=== PATIENT | male | born 1965 | race Caucasian/White ===

== ENCOUNTER 2018-05-10 12:37 | Observation (INO) | payer SELFPAY ==
[2018-05-10] MEDS ORDERED: Senokot S 8.6-50 MG TAB PO PRN (15:02)
[2018-05-10] MEDS ORDERED: Guaifenesin DM 100-10/5 ML UDCUP PO PRN (15:02)
[2018-05-10] MEDS ORDERED: Acetaminophen 325 MG TAB PO PRN (15:02)
[2018-05-10] MEDS ORDERED: Nitroglycerin 0.4 MG TAB (25 Tab Bottle) PO PRN (15:02)
[2018-05-10] MEDS ORDERED: Lisinopril 10 MG TAB PO SCH ×2 (15:15→21:00)
[2018-05-10] MEDS ORDERED: Multivitamins, Adult 10 ML, Folic Acid 1 MG, Thiamine HCl 100 MG in Dextrose 5 %-0.45 %... IV SCH ×2 (15:15→21:00)
--- NOTE | 2018-05-10 15:50 | HP ---
REASON FOR ADMISSION: Hypertensive urgency, chest pain. HISTORY OF PRESENTING ILLNESS: The patient gives history of waking up at around 4:30 a.m. with shortness of breath. He tried to move around and sleep back, but none of it seemed to help him. He finally drove to his [facility], who called EMS and the patient was taken to [facility]. There are no complaints of cough or expectoration. The patient developed left-sided chest pain with radiation to left upper extremity. This lasted for 30 minutes. It was a sharp pain. Currently, he is chest pain free. On arrival at [facility], the patient had systolic blood pressures into 194/123. As the patient was symptomatic with chest pain and hypertensive urgency, was placed on nitroglycerin drip and was transferred here. He received Lopressor IV 5 mg x3, 1-inch transdermal patch, Norvasc 10 mg, and finally was placed on nitroglycerin drip as his hypertension was not getting controlled. Here in the ER, his systolic blood pressure has come down to 140s. His nitroglycerin drip has been discontinued at present. No complaints of fever, palpitation, or PND. No prior cardiac workup in the past. PAST MEDICAL AND SURGICAL HISTORY: He has had back surgery done with two steel rods and 6 screws per patient. No medical history as such. CURRENT MEDICATIONS: None. ALLERGIES: NO KNOWN DRUG ALLERGIES. PERSONAL HISTORY: Drinks 15 beers a daily. Does not abuse drugs. He smoked for 5 years or so and quit when he was 23 years old. Works as a diesel mechanic. FAMILY HISTORY: Mother is living and has hypertension. Father at the age of 69 years. He has had nearly 4 MIs. The patient is not . Does not have children and he stays alone. CODE STATUS: Full. Power of sports attorney is his mom. REVIEW OF SYSTEMS: CONSTITUTIONAL: Negative for weight loss or gain, ability to conduct usual activities. SKIN: Negative for rash, itching. EYES: Negative for double vision, pain. ENT/MOUTH: Negative for nose bleeding, neck stiffness, pain, tenderness. CARDIOVASCULAR: Negative for palpitations, dyspnea on exertion, orthopnea. RESPIRATORY: Negative for shortness of breath, wheezing, cough, hemoptysis, fever or night sweats. GASTROINTESTINAL: Negative for poor appetite, abdominal pain, heartburn, nausea , vomiting, constipation, or diarrhea. GENITOURINARY: Negative for urgency, frequency, dysuria, nocturia. MUSCULOSKELETAL: Negative for pain, swelling. NEUROLOGIC/PSYCHIATRIC: Negative for anxiety, depression. ALLERGY/IMMUNOLOGIC: Negative for skin rash, bleeding tendency. PHYSICAL EXAMINATION: GENERAL: The patient is a 53-year-old male, who is currently not in any acute distress. VITAL SIGNS: Blood pressure 154/86, pulse 84 per minute, respiratory rate 16 per minute, temperature 97.1 degrees Fahrenheit, saturating 97% on room air. NECK: Supple. No elevated JVD. HEENT: Eyes; extraocular muscles intact. Pupils reacting to light. Oral cavity, mucous membranes are dry. No exudates or congestion. CARDIOVASCULAR SYSTEM: S1 and S2 heard. Regular rhythm. RESPIRATORY SYSTEM: Air entry 1+ bilateral. Scattered rhonchi plus bilateral. ABDOMEN: Soft. Bowel sounds heard. No tenderness, rigidity, or guarding. EXTREMITIES: No peripheral edema or calf tenderness. VASCULAR SYSTEM: Peripheral pulses 1+ bilateral. No ischemic ulcerations or gangrene. CENTRAL NERVOUS SYSTEM: No gross focal deficits noted. The patient is alert, awake, and oriented well. PSYCHIATRIC SYSTEM: The patient's mood is euthymic. No hallucinations or delusions. LABORATORY DATA: White count of 8, H and H of 17 and 51, platelet count 243, with 74% neutrophils, MCV is 96. D-dimer was 0.27. Electrolytes stable. BUN 9, creatinine 0.86, serum glucose 112, total bilirubin 0.6, AST 50, ALT 54, alkaline phosphatase 74. Troponin x3 is negative. BNP less than 10. Albumin 4.5. Lipase is 4. UA shows 80 mg/dL of ketones, small bilirubin, trace leuk esterase, but 0 to 3 wbc's, no bacteria seen. Urine drug screen is negative. Chest x-ray done shows no acute cardiopulmonary abnormalities. EKG done shows normal sinus rhythm at 85 beats per minute. There is poor R-wave progression and low voltage seen, questionable Q-waves in the inferior wall. CLINICAL IMPRESSION AND PLAN: The patient will be under observation on telemetry for hypertensive urgency, chest pain, alcohol abuse. The patient's current systolic blood pressure is in the 140 to [address] We will place him on lisinopril and Lopressor. He will be on a full dose of aspirin. If needed, we will use further antihypertensive medications. Echo with 2D Doppler for LV function and to rule out cardiomyopathy. The patient has been a chronic alcoholic. We will obtain a nuclear stress test as well. Ultrasound venous Doppler of lower extremities to rule out DVT. We will follow ACS evidence-based protocol. The patient is also clinically dry and in view of his alcohol abuse, we will place him on banana bag at 100 mL per hour. We will continue to closely monitor him for any hemodynamic compromise. Job ID: [id number] [facility]
[2018-05-10] MEDS ORDERED: Nitroglycerin 2% Ointment 1 INCH/1 GM Packet ONE (17:29)
--- NOTE | 2018-05-10 17:52 | ULT ---
BILATERAL LOWER EXTREMITY VENOUS DOPPLER: HISTORY: Lower extremity pain. COMPARISON: None. TECHNIQUE: Real-time blake-scale color Doppler and spectral analysis of the bilateral lower extremity venous syst em is performed. The common femoral, femoral, and proximal portions of the greater saphenous and deep femoral veins, a s well as the popliteal and posterior tibial veins, were interrogated. FINDINGS: Mild lower extremity edema. Normal flow augmentation and compression. IMPRESSION: No deep venous thrombosis. POS: JAMESON
[2018-05-10 19:55] VITALS: BMI 28.5
[2018-05-10] MEDS: Famotidine 20 MG TAB PO SCH (20:56)
[2018-05-10] MEDS: Metoprolol Tartrate 25 MG TAB PO SCH (21:06)
[2018-05-11 05:12] LABS: #Basophils 0.1 thou/uL (0.0-0.2); #Eosinphils 0.1 thou/uL (0.0-0.7); #Lymphocytes 1.4 thou/uL (1.20-3.40); #Monocytes 0.6 thou/uL (0.11-0.59); #Neutrophils 4.9 thou/uL (1.40-6.50); %Basophils 1.1 % (0.0-1.0); %Eosinophils 0.9 % (0.0-10.0); %Lymphocytes 19.5 % (21.0-51.0); %Monocytes 8.3 % (0.0-10.0); %Neutrophils 70.2 % (42.0-75.0); Hemoglobin 15.6 g/dL (14.0-18.0); Mean Corpuscular Hemoglobin 33.1 pg (27.0-31.0); Mean Corpuscular Volume 97.6 fL (78.0-98.0); Mean Platelet Volume 8.1 fL (7.4-10.4); Platelet Count 206 thou/uL (130-400); RBC Distribution Width 11.9 % (11.5-14.5); Red Blood Cell (RBC) Count 4.72 mill/uL (4.70-6.10); White Blood Cell (WBC) Count 6.9 thou/uL (4.8-10.8)
[2018-05-11 05:31] LABS: Troponin I Less than 0.010 ng/mL (< 0.028)
[2018-05-11 05:35] LABS: Anion Gap 12 mmol/L (10-20); BUN (Urea Nitrogen) 9 mg/dL (8.4-25.7); Calc. Creatinine Clearance 129 mL/min (70-130); Calcium 9.3 mg/dL (7.8-10.44); Carbon Dioxide 25 mmol/L (22-29); Cardiac Risk 6.6 (Less than 4.5); Chloride 103 mmol/L (98-107); Cholesterol 285 mg/dl (< 200 Desired); Estimated GFR-MDRD 90; Glucose 127 mg/dL (70-105); HDL Cholesterol 43 mg/dL (>60 Neg Risk); LDL Cholesterol, Calculated 207 mg/dL; Sodium 136 mmol/L (136-145); Triglycerides 175 mg/dL (Less than 150)
[2018-05-11 07:33] VITALS: BP 121/75; TEMP 97.6
[2018-05-11] MEDS: Metoprolol Tartrate 25 MG TAB PO SCH (08:20)
[2018-05-11] MEDS ORDERED: Aspirin 325 MG TAB PO SCH (09:00)
[2018-05-11] MEDS ORDERED: Lisinopril 10 MG TAB PO SCH (09:00)
[2018-05-11] MEDS ORDERED: Enoxaparin Sodium 40 MG/0.4 ML SYRINGE SC SCH (09:00)
[2018-05-11] MEDS ORDERED: ADENOSINE 60 MG/20 ML VIAL ONE (11:47)
[2018-05-11] MEDS: Famotidine 20 MG TAB PO SCH (12:52)
--- NOTE | 2018-05-11 14:25 | NM ---
RADIONUCLIDE STRESS REST MYOCARDIAL PERFUSION SCAN WITH CT ATTENUATION CORRECTION AND SPECT IMAGING LEFT VENTRICULAR WALL MOTION EVALUATION AND EJECTION FRACTION: HISTORY: Chest pain. FINDINGS: Adenosine protocol. There is heterogeneous uptake of radiotracer throughout the left ventricular savita cardium. No focal perfusion defect or reversibility. QGS analysis of gated SPECT images shows no fo rosibel wall motion abnormalities. Ejection fraction calculated at 59%. IMPRESSION: Normal myocardial perfusion scan. Normal left ventricular ejection fraction. POS: JAMESON
--- NOTE | 2018-05-11 14:57 | STRESS ---
Acquisition Time: 2018-05-11 10:38:52 Total Exercise Time: 00:04:00 Test Indications: CHEST PAIN Medications: Protocol: ADENOSINE Max HR: 108 BPM 63% of Pred: 169 BPM Max BP: 130/074 mmHG Max Work Load: 1.0 METS RESTING ECG: NORMAL SINUS RHYTHM AT 76BPM SYMPTOMS: PALPITATIONS, SHORTNESS OF BREATH NORMAL BP RESPONSE ECTOPY: NONE ECG STRESS: 1MM ST-SEGMENT DEPRESSION IN V6 INTERPTRETATION: INDETERMINATE ECG/AWAIT NUCLEAR IMAGES FOR DEFINITIVE DIAGNOSIS Confirmed by SULEMA STERN, OSKAR ([id number]) on 05/11/2018 2:57:00 PM Referred By: MD Kana HELM Confirmed By:OSKAR STERN PA-C
[2018-05-11] MEDS ORDERED: Atorvastatin Calcium 40 MG TAB PO SCH (21:00)
--- NOTE | 2018-05-13 11:43 | DIS ---
DATE OF ADMISSION: 05/10/2018 DATE OF DISCHARGE: 05/11/2018 DISCHARGE DISPOSITION: To home. PRIMARY DISCHARGE DIAGNOSES: Chest pain, which is noncardiac; hypertensive urgency, resolved; alcohol abuse. PROCEDURES DONE DURING HOSPITALIZATION: Ultrasound venous Doppler of lower extremities done showed no evidence of DVT. Nuclear stress test done showed normal myocardial perfusion scan, normal LV ejection fraction, EF was 59%. No focal perfusion defect or reversibility was seen on the stress test. Echo with 2D Doppler showed EF of 50% to 55%. H and H 15 and 46, MCV 97, platelet count 206. Total cholesterol 285, triglycerides 175, LDL 207, HDL 43. Troponin x4 negative. BNP less than 10. BUN and creatinine 9 and 0.8. AST 50, ALT 54, alkaline phosphatase 74, total bilirubin 0.6, albumin was 4.5, lipase 4. Urine drug screen was negative. DISCHARGE MEDICATION: 1. Lipitor 40 mg p.o. at bedtime. 2. Lisinopril 10 mg p.o. daily. 3. Lopressor 25 mg twice daily. ALLERGIES: NO KNOWN DRUG ALLERGIES. DISCHARGE PLAN: The patient to follow up with primary care physician in one week. BRIEF COURSE DURING HOSPITALIZATION: The patient initially got admitted on the with complaints of chest pain, shortness of breath. His initial systolic blood pressures were more than 190. His diastolic was 123. The patient essentially was placed on nitroglycerin drip prior to transferring here from [facility]. This was discontinued in the ER with blood pressure stabilizing. Once his blood pressure stabilized, the patient was scheduled for a nuclear stress test, which showed no reversible ischemia. The patient's chest pain and shortness of breath are completely resolved. The patient is known to drink more than 15 beers a day. He was counseled with regarding the same. He is hemodynamically stable and will be shortly discharged home. Please note, I have seen and examined the patient on the 11 of May prior to discharge. Job ID: [id number]
== END 2018-05-11 13:17 | disposition home or self-care (01) ==
LOC: ERS 12:37 → ERHOLD 14:07 → 2SW 19:39
PROVIDERS: ADMIT Internal Medicine; ATTEND Internal Medicine
DX: R07.89 Other chest pain (principal); I16.0 Hypertensive urgency; F10.10 Alcohol abuse, uncomplicated; Z87.891 Personal history of nicotine dependence
CPT/HCPCS: 36415; 78452; 80048; 80061; 84484; 85025; 93005; 93017; 93306; 93970; 94760; 96365; A9500; G0378; J0153; J1650; J3411; J7042